=== PATIENT | male | born 1975 | race Caucasian/White ===

== ENCOUNTER → 2016-05-10 | Outpatient (CLI) | payer OTHER | LOC: BHSO 10:18 | DX: F33.42 Major depressive disorder, recurrent, in full remission (principal) ==

== ENCOUNTER → 2016-07-13 | Outpatient (CLI) | payer OTHER | LOC: BHSO 10:26 | DX: F41.1 Generalized anxiety disorder (principal) ==

== ENCOUNTER → 2016-10-19 | Outpatient (CLI) | payer OTHER | LOC: BHSO 14:52 | DX: F41.1 Generalized anxiety disorder (principal) ==

== ENCOUNTER → 2017-01-25 | Outpatient (CLI) | payer OTHER | LOC: BHSO 15:33 | DX: F41.1 Generalized anxiety disorder (principal) ==

== ENCOUNTER → 2017-02-18 | Outpatient (CLI) | payer OTHER | LOC: BHSO 08:12 | DX: F90.0 Attention-deficit hyperactivity disorder, predominantly inattentive type (principal) ==

== ENCOUNTER → 2017-03-27 | Outpatient (CLI) | payer OTHER | LOC: BHSO 09:46 | DX: F90.0 Attention-deficit hyperactivity disorder, predominantly inattentive type (principal) | CPT/HCPCS: G0463 ==

== ENCOUNTER → 2017-04-12 | Outpatient (CLI) | payer OTHER | LOC: BHSO 08:56 | DX: F90.0 Attention-deficit hyperactivity disorder, predominantly inattentive type (principal) | CPT/HCPCS: G0463 ==

== ENCOUNTER → 2017-05-24 | Outpatient (CLI) | payer OTHER | LOC: BHSO 08:54 | DX: F90.0 Attention-deficit hyperactivity disorder, predominantly inattentive type (principal) | CPT/HCPCS: G0463 ==

== ENCOUNTER → 2017-07-26 | Outpatient (CLI) | payer OTHER | LOC: BHSO 08:57 | DX: F90.0 Attention-deficit hyperactivity disorder, predominantly inattentive type (principal) | CPT/HCPCS: G0463 ==

== ENCOUNTER → 2017-10-10 | Outpatient (CLI) | payer OTHER | LOC: BHSO 08:41 | DX: F90.0 Attention-deficit hyperactivity disorder, predominantly inattentive type (principal) | CPT/HCPCS: G0463 ==

== ENCOUNTER → 2018-01-23 | Outpatient (CLI) | payer OTHER | LOC: BHSO 15:40 | DX: F90.0 Attention-deficit hyperactivity disorder, predominantly inattentive type (principal) | CPT/HCPCS: G0463 ==

== ENCOUNTER → 2018-03-31 | Outpatient (CLI) | payer OTHER | LOC: BHSO 08:27 | DX: F90.0 Attention-deficit hyperactivity disorder, predominantly inattentive type (principal) | CPT/HCPCS: G0463 ==

== ENCOUNTER → 2018-08-12 | Outpatient (CLI) | payer OTHER | LOC: BHSO 09:39 | DX: F33.41 Major depressive disorder, recurrent, in partial remission (principal) | CPT/HCPCS: G0463 ==

== ENCOUNTER → 2019-04-17 | Outpatient (CLI) | payer OTHER | LOC: BHSO 09:13 | DX: F90.0 Attention-deficit hyperactivity disorder, predominantly inattentive type (principal) | CPT/HCPCS: G0463 ==

== ENCOUNTER 2021-01-11 07:18 | Day surgery (SDC) | payer OTHER ==
[2021-01-11] VITALS (10 sets, daily range): BP systolic 102–158; BP diastolic 59–94; PULSE 60–78; TEMP 98
[~2021-01-11] VITALS: Ht 180.3 cm; Wt 94.0 kg
[2021-01-11] MEDS ORDERED: TENORMIN 2525 MG/TAB PO (07:37)
[2021-01-11] MEDS ORDERED: ASPIRIN 32325 MG/TAB PO (07:38)
[2021-01-11] MEDS ORDERED: ZESTORETIC 12.51 TA1 PO (07:39)
[2021-01-11] MEDS ORDERED: CRESTOR40 MG PO (07:40)
[2021-01-11] MEDS ORDERED: TYLENOL 325MG325 MG PO (07:41)
[2021-01-11] MEDS ORDERED: LOFIBRA160 MG PO (07:41)
[2021-01-11 08:31] LABS: HEMATOCRIT 49.4 % (42.0-52.0); HEMOGLOBIN 17.3 g/dl (13.5-18.0); MEAN CELL VOLUME 86 fl (80.0-100.0); MEAN CORPUSCULAR HEMOGLOBIN 30 pg (27.0-31.0); MEAN CORPUSCULAR HGB CONC 35 g/dl (33.0-37.0); MEAN PLATELET VOLUME 9.2 fl (7.4-10.4); PLATELET COUNT 257 K/mm3 (130-400); RED BLOOD COUNT 5.77 M/mm3 (4.20-5.60); REDCELL DISTRIBUTION WIDTH-CV 11.9 % (11.5-14.5)
[2021-01-11 08:46] LABS: CALCIUM 10.9 mg/dL (8.4-10.2); CREATININE, serum 1.23 mg/dL (0.72-1.25); POTASSIUM 3.9 mmol/L (3.5-4.5)
[2021-01-11 08:49] LABS: PARTIAL THROMBOPLASTIN TIME 29.6 SECONDS (26.0-37.0)
--- NOTE | 2021-01-11 09:40 | NUR ---
pt returned via bed from lab support technician. pt is awake and alert, in room, Dr Lobato in to talk with pt. call light in reach. drinks water, and lunch ordered. band on intact to right wrist
--- NOTE | 2021-01-11 09:45 | NUR ---
SEE MERGE FOR ALL MEDICATION ADMINISTRATION TIMES/DOSAGES AND INTRA/POST SEDATION ASSESSMENT.
--- NOTE | 2021-01-11 10:41 | NUR ---
hob elevated, visits with
--- NOTE | 2021-01-11 11:00 | NUR ---
pt sits up in bed, eats lunch, at bedside no c/o
--- NOTE | 2021-01-11 11:30 | NUR ---
reviewed discharge inst. with pt on care of site, activity and next appt with verbal understanding.
--- NOTE | 2021-01-11 12:00 | NUR ---
band released 2cc at a time over 12 min. with no bleeding or swelling noted, bandaid on with coban wrap, reviewed site care with pt. pt up in room and iv d'cd intact.
--- NOTE | 2021-01-11 12:43 | NUR ---
pt discharged via w/c to car with
== END 2021-01-11 12:45 | disposition home or self-care (01) ==
LOC: COL.CAR 07:18
PROVIDERS: Internal Medicine Cardiovascular Disease
DX: R07.89 Other chest pain (principal); I10 Essential (primary) hypertension; E78.5 Hyperlipidemia, unspecified; R06.02 Shortness of breath; R94.39 Abnormal result of other cardiovascular function study; Z79.899 Other long term (current) drug therapy; Z87.891 Personal history of nicotine dependence; Z86.16 Personal history of COVID-19
CPT/HCPCS: J1644; J2405; Q9967